=== PATIENT | male | born 1960 | race Caucasian/White ===

== ENCOUNTER 2018-05-02 15:21 | Emergency (ER) | payer OTHER ==
[~2018-05-02] VITALS: Ht 172.7 cm; Wt 106.1 kg
[2018-05-02 15:34] VITALS: BP 165/94
--- NOTE | 2018-05-02 15:55 | NUR ---
C/O HIGH BLOOD PRESSURE X 10 DAYS---GENERAL WEAKNESS, HEADACHE ---SEEN IN [facility] X2 DAYS AGO RX CLONIDINE---DC WITH PMD F/U PT STATES HE DOES NOT HAVE PMD
[2018-05-02] MEDS ORDERED: NACL 0.9% 1,000 ML IV ONE (17:45)
[2018-05-02] MEDS ORDERED: NACL 0.9% 1,000 ML IV SCH (17:45)
[2018-05-02] MEDS ORDERED: cloNIDine 0.1 MG TAB PO ONE (17:50)
--- NOTE | 2018-05-02 17:55 | NUR ---
PT TAKEN TO CT VIA WHEELCHAIR
--- NOTE | 2018-05-02 18:04 | NUR ---
PT RETURNED FROM CT
[2018-05-02 18:56] LABS: BASOPHILS # (AUTO) 0.1 K/uL (0.00-0.22); BASOPHILS % (AUTO) 0.6 % (0.0-2.0); EOSINOPHILS # (AUTO) 0.3 K/uL (0-0.4); EOSINOPHILS % (AUTO) 2.9 % (0.0-4.0); HEMATOCRIT 45.9 % (36-52); HEMOGLOBIN 15.7 g/dL (12.0-18.0); LYMPHOCYTES # (AUTO) 2.1 K/uL (2.0-11.5); LYMPHOCYTES % (AUTO) 22.8 % (20.5-51.1); MEAN CORPUSCULAR HEMOGLOBIN 29 pg (27-31); MEAN CORPUSCULAR HGB CONC 34 g/dL (33-37); MEAN CORPUSCULAR VOLUME 86.1 fL (80-94); MONOCYTES # (AUTO) 0.7 K/uL (0.8-1.0); MONOCYTES % (AUTO) 8.2 % (1.7-9.3); NEUTROPHILS # (AUTO) 5.9 K/uL (1.8-7.7); NEUTROPHILS % (AUTO) 65.5 % (42.2-75.2); PLATELET COUNT (AUTO) 230 K/uL (140-450); RED BLOOD CELL COUNT(AUTO) 5.33 MIL/uL (4.20-6.10); RED CELL DISTRIBUTION WIDTH 13.6 % (11.6-13.7)
[2018-05-02 19:04] LABS: ACETONE, SERUM NEGATIVE (NEGATIVE)
[2018-05-02 19:05] LABS: ANION GAP 10.5 (8-16); CARBON DIOXIDE 32.2 mmol/L (21-32); CHLORIDE 103 mmol/L (98-107); CREATININE 1.8 mg/dL (0.7-1.3); GFR ARICAN-AMERICAN 50 mL/min (>90); GLUCOSE 130 mg/dL (74-106); POTASSIUM 3.7 mmol/L (3.5-5.1); SODIUM SERUM 142 mmol/L (136-145); UREA NITROGEN, BLOOD 30 mg/dL (7-18)
[2018-05-02 19:10] LABS: PROTHROMBIN TIME 10.4 secs (10.8-13.4)
--- NOTE | 2018-05-02 19:16 | NUR ---
REPORT GIVEN TO JULIO STONE.
[2018-05-02 19:18] LABS: ALBUMIN 4.1 g/dL (3.4-5.0); AMYLASE 50 U/L (25-115); ASPARTATE AMINOTRANSFERASE 16 U/L (15-37); LIPASE 311 U/L (73-393); MAGNESIUM 2.2 mg/dL (1.8-2.4); TOTAL BILIRUBIN 0.5 mg/dL (0.0-1.0); URIC ACID 7.6 mg/dL (2.6-7.2)
[2018-05-02 19:19] LABS: APPEARANCE,URINE CLEAR (CLEAR); BILIRUBIN,URINE NEGATIVE (NEGATIVE); BLOOD, URINE NEGATIVE (NEGATIVE); COLOR,URINE YELLOW (YELLOW); LEUKOCYTE ESTERASE ,URINE NEGATIVE (NEGATIVE); NITRITE, URINE NEGATIVE (NEGATIVE); PH,URINE 5.5 (5.0-9.0); UGLUCOSE NEGATIVE (NEGATIVE)
[2018-05-02 19:31] LABS: RBC,URINE 0-5 (RARE) /HPF (0-5); WBC,URINE 0-5 (RARE) /HPF (0-5)
[2018-05-02 20:10] VITALS: BP 185/51
--- NOTE | 2018-05-02 20:10 | NUR ---
Patient discharged with v/s stable. Written and verbal after care instructions given and explained. Patient alert, oriented and verbalized understanding of instructions. Ambulatory with steady gait. All questions addressed prior to discharge. ID band removed. Patient advised to follow up with PMD. Rx of Clonidine Hydrochloride 0.2mg given. Patient educated on indication of medication including possible reaction and side effects. Opportunity to ask questions provided and answered.
== END 2018-05-02 20:10 | disposition home or self-care (01) ==
LOC: MED 15:21
DX: I10 Essential (primary) hypertension (principal); R07.89 Other chest pain; F17.200 Nicotine dependence, unspecified, uncomplicated; Z88.0 Allergy status to penicillin; Z88.8 Allergy status to other drugs, medicaments and biological substances; Z95.0 Presence of cardiac pacemaker
CPT/HCPCS: 36415; 70450; 71045; 80053; 80162; 81001; 82009; 82150; 83605; 83690; 83735; 84484; 84550; 85025; 85610; 87804; 93005; 96360; 96361; 99284; J7030